=== PATIENT | female | born 1990 ===

== ENCOUNTER 2018-10-23 10:16 | Emergency (ER) | payer SELFPAY ==
[2018-10-23 10:20] VITALS: BMI 24.2
[2018-10-23 10:21] VITALS: O2SAT 98
--- NOTE | 2018-10-23 11:40 | ED PDOC ---
HPI: General Adult Time Seen by Provider: 10/23/18 11:37 Chief Complaint (Nursing): Headache Chief Complaint (Provider): nasal congestion/headache History Per: Patient (28 y/o female here with nasal congestion/ear pressure/ upper back pain ongoing x 4 days. Takes lizeth without improvement. Denies any heavy lifting.) Past Medical History Reviewed: Historical Data, Nursing Documentation, Vital Signs Vital Signs: Last Vital Signs Temp 98.6 F 10/23/18 10:19 Pulse 94 H 10/23/18 10:19 Resp 17 10/23/18 10:19 BP 117/68 10/23/18 10:19 Pulse Ox 98 10/23/18 10:19 - Family History Family History: States: No Known Family Hx - Immunization History Hx Influenza Vaccination: Yes (04/09/15) - Home Medications Home Medications: Ambulatory Orders Medication Instructions Recorded Fluticasone Nasal [Flonase] 2 spray NS DAILY #1 bottle 10/23/18 Ibuprofen [Motrin] 600 mg PO Q8 PRN #21 tab 10/23/18 Pseudoephedrine [Sudafed Tab] 60 mg PO Q6 PRN #24 tab 10/23/18 - Allergies Allergies/Adverse Reactions: Allergies Allergy/AdvReac Type Severity Reaction Status Date / Time No Known Allergies Allergy Verified 10/23/18 10:30 Review of Systems ROS Statement: Except As Marked, All Systems Reviewed And Found Negative Physical Exam - Reviewed Nursing Documentation Reviewed: Yes Vital Signs Reviewed: Yes - Physical Exam Appears: Positive for: Well, Non-toxic, No Acute Distress Head Exam: Positive for: ATRAUMATIC, NORMAL INSPECTION, NORMOCEPHALIC Skin: Positive for: Normal Color, Warm, DRY Eye Exam: Positive for: EOMI, Normal appearance, PERRL ENT: Negative for: Normal ENT Inspection (decreased cone of light bilateral TM) Neck: Positive for: Normal, Painless ROM Cardiovascular/Chest: Positive for: Regular Rate, Rhythm Respiratory: Positive for: CNT, Normal Breath Sounds Gastrointestinal/Abdominal: Positive for: Normal Exam, Soft Back: Positive for: Normal Inspection Extremity: Positive for: Normal ROM Neurological/Psych: Positive for: Awake, Alert, Normal Tone - Laboratory Results Urine POC: Negative - ECG O2 Sat by Pulse Oximetry: 98 Disposition - Clinical Impression Clinical Impression: Seasonal allergic rhinitis, Back strain - Patient ED Disposition Is Patient to be Admitted: No - Disposition Referrals: [facility] [Outside] Disposition: Routine/Home Disposition Time: 11:38 Condition: FAIR Prescriptions: Fluticasone Nasal [Flonase] 2 spray NS DAILY #1 bottle Ibuprofen [Motrin] 600 mg PO Q8 PRN #21 tab PRN Reason: Pain, Moderate (4-7) Pseudoephedrine [Sudafed Tab] 60 mg PO Q6 PRN #24 tab PRN Reason: Nasal Congestion Instructions: Muscle Strain, Seasonal Allergies in Adults Print Language: GIBR[place]
[2018-10-23 12:19] VITALS: BP 114/70; PULSE 80; RESP 16; TEMP 98.2
== END 2018-10-23 12:20 | disposition home or self-care (01) ==
LOC: H.ER 10:16
DX: J30.2 Other seasonal allergic rhinitis (principal); S39.012A Strain of muscle, fascia and tendon of lower back, initial encounter; X58.XXXA Exposure to other specified factors, initial encounter